=== PATIENT | female | born 1990 | race African-American/Black ===

== ENCOUNTER 2019-12-10 04:50 | Emergency (ER) | payer MEDICAID ==
[~2019-12-10] VITALS: Ht 180.3 cm; Wt 78.0 kg
[2019-12-10 04:57] VITALS: BP 119/63
--- NOTE | 2019-12-10 04:57 | NUR ---
ramiro GAO to chair A
[2019-12-10 05:01] VITALS: BP 119/63
--- NOTE | 2019-12-10 05:02 | NUR ---
Dr. Gallegos assessing pt.
--- NOTE | 2019-12-10 05:02 | NUR ---
see complete assessment.
--- NOTE | 2019-12-10 05:06 | NUR ---
PT ASSESSMENT COMPLETED BY KAREN , NO NURSING INTERVENTION NEEDED AT THIS TIME.
--- NOTE | 2019-12-10 05:07 | NUR ---
Patient discharged with v/s stable. Written and verbal after care instructions given and explained. Patient verbalized understanding. Ambulatory with [place] [employer] in custody. All questions addressed prior to discharge. Advised to follow up with PMD.
--- NOTE | 2019-12-10 05:08 | NUR ---
Note jacklyn in ED - 12/10/19 at 0509 by OSBALDO Patient discharged with v/s stable. Written and verbal after care instructions given and explained. Patient verbalized understanding. Police with in custody. All questions addressed prior to discharge. Advised to follow up with PMD.
== END 2019-12-10 05:07 ==
LOC: MED 04:50
DX: Z02.89 Encounter for other administrative examinations (principal)
CPT/HCPCS: 99283